=== PATIENT | male | born 1990 | race American Indian/Alaskan Native ===

== ENCOUNTER 2019-04-14 22:33 | Emergency (ER) | payer SELFPAY ==
[2019-04-14] MEDS ORDERED: FLU Vacc QS2019-20(6MOS+)/PF 60 MCG/0.5 ML SYRINGE IM ONE (23:00)
--- NOTE | 2019-04-14 23:18 | EDM.PDOC ---
ED HPI GENERAL MEDICAL PROBLEM - General Chief Complaint: Abdominal Pain Stated Complaint: STOMACH PAIN Time Seen by Provider: 04/14/19 22:46 Source of Information: Reports: Patient History Limitations: Reports: No Limitations - History of Present Illness INITIAL COMMENTS - FREE TEXT/NARRATIVE: This is a 28-year-old male. He comes tonight because he has been having abdominal pain in the left upper quadrant as well as vomited 1 times today with no blood. He did vomit in the ER as well. He tells me he thinks that it's his spleen is acting up and when I ask him why the spleen is as every time I eat it hurts in that area and I get nauseated. I explained to him that the spleen is nothing to do with digestion but his stomach and pancreas which also sit in that area could be the cause of his symptoms and not his spleen. Patient states he is under a lot of stress that he does drink alcohol. He also tells me he has HIV and he thinks he might have hepatitis as well. He has not sought help from this or gone to the health department to be checked or to get medications. The reason he comes tonight is because his pain in his left upper quadrant seems to gotten worse. He had a normal bowel movement this morning. Denies any diarrhea. He denies any fever or chills. He's had no cough or congestion. Left Upper Abdomen Pain Score (Numeric/FACES): 8 - Related Data Allergies Allergy/AdvReac Type Severity Reaction Status Date / Time No Known Allergies Allergy Verified 04/14/19 22:47 Home Meds: Home Meds Esomeprazole Magnesium [Nexium] 40 mg PO QAM #30 capsule. 04/15/19 [Rx] Ondansetron HCl [Zofran] 4 mg PO Q6H PRN #15 tablet 04/15/19 [Rx] Past Medical History HEENT History: Reports: None Cardiovascular History: Reports: None Respiratory History: Reports: SOB Gastrointestinal History: Reports: None Genitourinary History: Reports: None Musculoskeletal History: Reports: None Neurological History: Reports: None Psychiatric History: Reports: None Endocrine/Metabolic History: Reports: None Hematologic History: Reports: None Immunologic History: Reports: HIV Oncologic (Cancer) History: Reports: None Dermatologic History: Reports: None - Infectious Disease History Infectious Disease History: Reports: Hepatitis C, HIV-Human Immunodeficiency Virus, Other (See Below) Other Infectious Disease History: Pt states that he "thinks he has Hepatitis, but is unsure of the kind." Social & Family History - Tobacco Use Smoking Status *Q: Never Smoker - Caffeine Use Caffeine Use: Reports: None - Recreational Drug Use Recreational Drug Use: Yes Recreational Drug Type: Reports: Marijuana/Hashish ED ROS GENERAL - Review of Systems Review Of Systems: See Below Constitutional: Denies: Fever, Chills HEENT: Reports: No Symptoms Respiratory: Denies: Shortness of Breath, Cough Cardiovascular: Reports: No Symptoms Endocrine: Reports: Fatigue GI/Abdominal: Reports: Abdominal Pain, Nausea, Vomiting. Denies: Constipation, Diarrhea : Reports: No Symptoms Musculoskeletal: Reports: No Symptoms Skin: Reports: No Symptoms Neurological: Reports: No Symptoms Psychiatric: Reports: No Symptoms Hematologic/Lymphatic: Reports: No Symptoms ED EXAM, GI/ABD - Physical Exam Exam: See Below Exam Limited By: No Limitations General Appearance: Alert, WD/WN, No Apparent Distress Eyes: Bilateral: Normal Appearance Ears: Normal External Exam Nose: Normal Inspection Throat/Mouth: Normal Inspection, Normal Lips, Normal Voice, No Airway Compromise Head: Normocephalic Neck: Supple Respiratory/Chest: No Respiratory Distress, Lungs Clear, Normal Breath Sounds Cardiovascular: Regular Rate, Rhythm, No Murmur GI/Abdominal Exam: Soft, Other (He has some mild left upper quadrant and epigastric soreness on palpation, there is no masses there is no rebound, the lower abdomen has no tenderness, bowel sounds are positive but they are decreased.). No: Guarding, Rigid, Rebound Back Exam: Normal Inspection, Full Range of Motion Extremities: Normal Inspection, Normal Range of Motion Neurological: Alert, Oriented Psychiatric: Normal Affect, Normal Mood Skin Exam: Warm, Dry Course - Vital Signs Last Recorded V/S: Last Vital Signs Temp 98.3 F 04/14/19 22:43 Pulse 61 04/14/19 22:43 Resp 16 04/14/19 22:43 BP 125/81 04/14/19 22:43 Pulse Ox 100 04/14/19 22:43 - Orders/Labs/Meds Orders: Active Orders 24 hr Category Date Time Status Influenza Vaccine Charge [RC] .DISCHARGE Care 04/14/19 22:49 Active Labs: Laboratory Tests 04/14/19 04/14/19 04/14/19 Range/Units 23:00 23:00 23:00 WBC 9.33 H (4.23-9.07) K/mm3 RBC 5.27 (4.63-6.08) M/mm3 Hgb 15.9 (13.7-17.5) gm/dl Hct 45.3 (40.1-51.0) % MCV 86.0 (79.0-92.2) fl MCH 30.2 (25.7-32.2) pg MCHC 35.1 (32.2-35.5) g/dl RDW Std Deviation 39.5 (35.1-43.9) fL Plt Count 215 (163-337) K/mm3 MPV 10.1 (9.4-12.3) fl Neut % (Auto) 55.0 (34.0-67.9) % Lymph % (Auto) 37.1 (21.8-53.1) % [place] % (Auto) 6.8 (5.3-12.2) % Eos % (Auto) 0.9 (0.8-7.0) Baso % (Auto) 0.1 (0.1-1.2) % Neut # (Auto) 5.14 (1.78-5.38) K/mm3 Lymph # (Auto) 3.46 (1.32-3.57) K/mm3 [place] # (Auto) 0.63 (0.30-0.82) K/mm3 Eos # (Auto) 0.08 (0.04-0.54) K/mm3 Baso # (Auto) 0.01 (0.01-0.08) K/mm3 Sodium 142 (136-145) mEq/L Potassium 3.5 (3.5-5.1) mEq/L Chloride 104 (98-107) mEq/L Carbon Dioxide 24 (21-32) mEq/L Anion Gap 17.5 H (5-15) BUN 16 (7-18) mg/dL Creatinine 0.9 (0.7-1.3) mg/dL Est Cr Clr Drug Dosing 91.77 mL/min Estimated GFR (MDRD) > 60 (>60) mL/min BUN/Creatinine Ratio 17.8 (14-18) Glucose 102 (74-106) mg/dL Lactic Acid 1.5 (0.4-2.0) mmol/L Calcium 9.1 (8.5-10.1) mg/dL Total Bilirubin 1.0 (0.2-1.0) mg/dL AST 18 (15-37) U/L ALT 26 (16-63) U/L Alkaline Phosphatase 77 (46-116) U/L Total Protein 7.7 (6.4-8.2) g/dl Albumin 4.5 (3.4-5.0) g/dl Globulin 3.2 gm/dL Albumin/Globulin Ratio 1.4 (1-2) Lipase 89 (73-393) U/L Meds: Medications Discontinued Medications Generic Name Dose Route Start Last Admin Trade Name Freq PRN Reason Stop Dose Admin Influenza Virus Vaccine 1 each 04/14/19 22:49 Pharmacy To Dose - Influenza Vaccine IM 04/14/19 22:50 ONETIME ONE Influenza Virus Vaccine 60 mcg 04/14/19 23:00 04/15/19 00:04 Fluzone Quad Syringe IM 04/14/19 23:01 Not Given .ONCE ONE Ondansetron HCl 4 mg 04/14/19 23:59 04/15/19 00:09 Zofran IVPUSH 04/15/19 00:00 4 mg ONETIME ONE Administration Pantoprazole Sodium 40 mg 04/14/19 23:59 04/15/19 00:09 Protonix Iv IVPUSH 04/15/19 00:00 40 mg ONETIME ONE Administration - Re-Assessments/Exams Free Text/Narrative Re-Assessment/Exam: 04/15/19 01:14 I spoke to the patient regarding his lab results. He does not seem to have a pancreatitis or any sort of serious infection. I believe he has a gastritis due to his drinking stress and anxiety. We talked at length about getting tested for HIV and hepatitis and that he needs to go to the health department here in town or at least call them and find out where this can be done. Also that the health department can provide medications to control the HIV and hepatitis but he has to ask them. Departure - Departure Time of Disposition: 01:15 Disposition: Home, Self-Care 01 Condition: Fair Clinical Impression: Gastritis Qualifiers: Gastritis type: unspecified gastritis Chronicity: acute Gastritis bleeding: without bleeding Qualified Code(s): K29.00 - Acute gastritis without bleeding - Discharge Information *PRESCRIPTION DRUG MONITORING PROGRAM REVIEWED*: Not Applicable *COPY OF PRESCRIPTION DRUG MONITORING REPORT IN PATIENT JANAK: Not Applicable Prescriptions: Esomeprazole Magnesium [Nexium] 40 mg PO QAM #30 capsule. Ondansetron HCl [Zofran] 4 mg PO Q6H PRN #15 tablet PRN Reason: Nausea Instructions: Gastritis, Adult, [id number] Referrals: PCP,None [Primary Care Provider] - Forms: ED Department Discharge, ED Return to Work/School Form Additional Instructions: Take the Zofran as needed for nausea, take the Nexium faithfully to help with the gastritis and to heal it, called the [facility] at [phone] and ask them about testing and also treatment, avoid all alcohol and also spices, drink lots of fluids, return to the ER as needed - My Orders Last 24 Hours: My Active Orders 04/14/19 22:49 Influenza Vaccine Charge [RC] .DISCHARGE - Assessment/Plan Last 24 Hours: My Active Orders 04/14/19 22:49 Influenza Vaccine Charge [RC] .DISCHARGE
[2019-04-14] MEDS ORDERED: Pantoprazole 40 MG Vial IVPUSH ONE (23:59)
[2019-04-14] MEDS ORDERED: Ondansetron 4 MG/2 ML SDV IVPUSH ONE (23:59)
== END 2019-04-15 01:45 | disposition home or self-care (01) ==
LOC: JD.ED 22:33
DX: K29.00 Acute gastritis without bleeding (principal)
CPT/HCPCS: 36415; 80053; 83605; 83690; 85025; 96374; 96375; 99284; C9113; J2405; 99283